=== PATIENT | male | born 1945 | race Caucasian/White ===

== ENCOUNTER 2017-06-08 15:15 | Emergency (ER) | payer OTHER, BC ==
[~2017-06-08] VITALS: Ht 172.7 cm; Wt 89.3 kg
[~2017-06-08 15:15] MED LIST: AKWA TEARS15 ML BOTH EYES; ALDACTONE25 MG PO; APRISO0.375 GM PO; ASPIR 8181 M1 PO; ATIVAN1 MG PO; CIALIS5 MG PO; CLOPIDOGREL75 MG PO; DIOVAN40 MG PO; DIOVAN80 MG PO; ESCITALOPRAM OX10 MG PO; FLONASE16 G1 BOTH NARES; FLUTICASONE PRO16 GM BOTH NARES; ISOSORBIDE DINI20 MG PO; KLONOPIN1 MG PO; LEXAPRO10 MG PO; LEXAPRO20 MG PO; LO-DOSE ASPIRIN81 M1 PO; LORAZEPAM1 MG PO; MECLIZINE HCL25 MG PO; METFORMIN HCL500 M1 PO; METOPROLOL SUCC25 MG PO; NITROSTAT0.4 MG SL; PLAVIX75 MG PO; PREVACID15 MG PO; PROAIR HFA8.5 GM IH; RANITIDINE HCL150 MG PO; REQUIP0.5 MG PO; SIMVASTATIN20 MG PO; SPIRONOLACTONE25 MG PO; SYMBICORT60 INHALAT IH; TOPROL XL25 MG PO; TYLENOL EXTRA500 MG PO; VIAGRA100 MG PO; WELLBUTRIN XL300 MG PO; ZANTAC300 MG PO; ZOCOR40 MG PO
[2017-06-08 15:53] LABS: HEMATOCRIT 45.3 % (38.0-50.0); MCH 32.3 PG (29.0-34.0); MCHC 34.2 G/DL (30.0-36.0); MCV 94.4 FL (86-99); MEAN PLAT.VOLUME 9.8 uM^3 (9.0-12.4); PLATELET COUNT 250 K/uL (156-360); RBC DIS.WIDTH-CV 11.5 % (11.8-14.6); RBC DIS.WIDTH-SD 39.9 % (39-53); WHITE BLOOD COUNT 8.5 K/uL (4.1-10.2)
[2017-06-08 16:02] LABS: CHLORIDE 108 mEq/L (99-109); POTASSIUM 3.9 mEq/L (3.7-5.4); SODIUM 141 mEq/L (136-147)
[2017-06-08 16:03] LABS: GLUCOSE 112 mg/dL (70-99)
[2017-06-08 16:05] LABS: ANION GAP 8 MEQ/L (2-14)
[2017-06-08 16:07] LABS: GFR ESTIMATE (CALCULATED) > 59 mL/min/
[2017-06-08 16:08] LABS: UREA NITROGEN (BUN) 10 mg/dL (9-23)
[2017-06-08 16:13] LABS: TROP-I INTERPRETATION NEGATIVE; TROPONIN-I < 0.01 ng/mL (0.0-0.30)
[2017-06-08 20:27] VITALS: BP 109/83
== END 2017-06-08 20:28 | disposition home or self-care (01) ==
LOC: EME 15:15
DX: M50.121 Cervical disc disorder at C4-C5 level with radiculopathy (principal); R07.89 Other chest pain; R11.0 Nausea; M48.03 Spinal stenosis, cervicothoracic region; I10 Essential (primary) hypertension; E78.5 Hyperlipidemia, unspecified; Z95.5 Presence of coronary angioplasty implant and graft; Z86.718 Personal history of other venous thrombosis and embolism; Z79.02 Long term (current) use of antithrombotics/antiplatelets; Z79.82 Long term (current) use of aspirin; Z87.891 Personal history of nicotine dependence
CPT/HCPCS: 71020; 71275; 80048; 84484; 85027; 93005; 99281; 99284

== ENCOUNTER 2017-06-11 08:46 | Emergency (ER) | payer OTHER, BC ==
[~2017-06-11] VITALS: Ht 172.7 cm; Wt 87.3 kg
[2017-06-11 09:46] LABS: EOSINOPHIL (%) 4.5 % (0-5); EOSINOPHIL COUNT 0.3 K/uL (0-0.3); HEMATOCRIT 41.2 % (38.0-50.0); IMMATURE GRANULOCYTE (%) 0.6 % (0.0-0.7); LYMPHOCYTE COUNT 1.6 K/uL (1.0-2.8); MCH 32.4 PG (29.0-34.0); MCHC 34.2 G/DL (30.0-36.0); MCV 94.7 FL (86-99); MEAN PLAT.VOLUME 9.6 uM^3 (9.0-12.4); MONOCYTE (%) 8.2 % (3-12); MONOCYTE COUNT 0.5 K/uL (0-0.8); NEUTROPHIL (%) 61.5 % (45-76); PLATELET COUNT 214 K/uL (156-360); RBC DIS.WIDTH-CV 11.5 % (11.8-14.6); RBC DIS.WIDTH-SD 39.9 % (39-53); RED BLOOD COUNT 4.35 M/uL (4.00-5.50); WHITE BLOOD COUNT 6.5 K/uL (4.1-10.2)
[2017-06-11 09:57] LABS: CHLORIDE 103 mEq/L (99-109); POTASSIUM 4.1 mEq/L (3.7-5.4); SODIUM 137 mEq/L (136-147)
[2017-06-11 09:59] LABS: GLUCOSE 127 mg/dL (70-99)
[2017-06-11 10:01] LABS: ANION GAP 10 MEQ/L (2-14); TOTAL BILIRUBIN 0.9 mg/dL (0.0-1.0)
[2017-06-11 10:03] LABS: ALKALINE PHOSPHATASE 70 IU/L (3-129); GFR ESTIMATE (CALCULATED) > 59 mL/min/
[2017-06-11 10:04] LABS: UREA NITROGEN (BUN) 10 mg/dL (9-23)
[2017-06-11 10:08] LABS: TROP-I INTERPRETATION NEGATIVE; TROPONIN-I < 0.01 ng/mL (0.0-0.30)
[2017-06-11] MEDS ORDERED: TESSALON200 MG PO (11:41)
[2017-06-11] MEDS ORDERED: NAPROXEN500 MG PO (11:41)
[2017-06-11] MEDS ORDERED: PREDNISONE20 MG PO (11:41)
[2017-06-11 11:58] VITALS: BP 109/78
== END 2017-06-11 11:59 | disposition home or self-care (01) ==
LOC: EME 08:46
PROVIDERS: Physician Assistant
DX: R09.1 Pleurisy (principal); J40 Bronchitis, not specified as acute or chronic; E11.9 Type 2 diabetes mellitus without complications; E78.5 Hyperlipidemia, unspecified; I10 Essential (primary) hypertension; I25.2 Old myocardial infarction; K21.9 Gastro-esophageal reflux disease without esophagitis; Z95.5 Presence of coronary angioplasty implant and graft; Z79.82 Long term (current) use of aspirin; Z87.891 Personal history of nicotine dependence
CPT/HCPCS: 71020; 80053; 83880; 84484; 85025; 85379; 93005; 99281; 99285; J1885; J2930

== ENCOUNTER 2017-10-07 10:46 | Emergency (ER) | payer OTHER, BC ==
[~2017-10-07] VITALS: Ht 172.7 cm; Wt 87.1 kg
[~2017-10-07 10:46] MED LIST changes: +NAPROXEN500 MG PO; +PREDNISONE20 MG PO; +TESSALON200 MG PO
[2017-10-07 11:27] LABS: BASOPHIL (%) 0.3 % (0-1); EOSINOPHIL (%) 3.5 % (0-5); EOSINOPHIL COUNT 0.4 K/uL (0-0.3); HEMATOCRIT 29.2 % (38.0-50.0); HEMOGLOBIN 9.7 G/DL (12.5-16.6); LYMPHOCYTE (%) 18.4 % (15-42); LYMPHOCYTE COUNT 1.9 K/uL (1.0-2.8); MCHC 33.2 G/DL (30.0-36.0); MCV 96.4 FL (86-99); MONOCYTE (%) 9.2 % (3-12); MONOCYTE COUNT 0.9 K/uL (0-0.8); NEUTROPHIL (%) 67.6 % (45-76); NEUTROPHIL COUNT 6.9 K/uL (1.8-6.4); PLATELET COUNT 322 K/uL (156-360); RBC DIS.WIDTH-CV 12.3 % (11.8-14.6); RBC DIS.WIDTH-SD 42.6 % (39-53); RED BLOOD COUNT 3.03 M/uL (4.00-5.50); WHITE BLOOD COUNT 10.2 K/uL (4.1-10.2)
[2017-10-07 11:35] LABS: ALBUMIN 3.7 g/dL (3.2-4.8); CHLORIDE 104 mEq/L (99-109); POTASSIUM 4.1 mEq/L (3.7-5.4); SODIUM 137 mEq/L (136-147)
[2017-10-07 11:37] LABS: GLUCOSE 111 mg/dL (70-99); TOTAL PROTEIN 6.1 g/dL (6.4-8.3)
[2017-10-07 11:38] LABS: APPEARANCE CLEAR ((CLEAR)); BILIRUBIN NEGATIVE; BLOOD NEGATIVE; COLOR COLORLESS ((YELLOW)); GLUCOSE (STRIP) NEGATIVE; KETONES NEGATIVE; LEUKOCYTES NEGATIVE; NITRITE NEGATIVE; PROTEIN (STRIP) NEGATIVE; SPECIFIC GRAVITY 1.003 (1.000-1.030); UCUL ADDED? NO; UROBILINOGEN 0.2 MG/DL (0.2-1.0)
[2017-10-07 11:39] LABS: TOTAL BILIRUBIN 0.4 mg/dL (0.0-1.0)
[2017-10-07 11:41] LABS: ALKALINE PHOSPHATASE 71 IU/L (3-129); CREATININE 0.8 mg/dL (0.6-1.3); GFR ESTIMATE (CALCULATED) > 59 mL/min/ (58.99-99999)
[2017-10-07 11:42] LABS: UREA NITROGEN (BUN) 12 mg/dL (9-23)
[2017-10-07 11:43] LABS: AST (GOT) 19 IU/L (2-34)
[2017-10-07 11:44] LABS: ALT (GPT) 20 IU/L (3-49)
[2017-10-07 14:32] VITALS: BP 110/73
== END 2017-10-07 14:51 | disposition home or self-care (01) ==
LOC: EME 10:46
PROVIDERS: Emergency Medicine
DX: R41.0 Disorientation, unspecified (principal); T48.1X5A Adverse effect of skeletal muscle relaxants [neuromuscular blocking agents], initial encounter; Z98.890 Other specified postprocedural states; Z98.1 Arthrodesis status; R51 Headache; I10 Essential (primary) hypertension; E78.5 Hyperlipidemia, unspecified; I25.2 Old myocardial infarction; Z95.5 Presence of coronary angioplasty implant and graft; Z79.02 Long term (current) use of antithrombotics/antiplatelets; Z79.82 Long term (current) use of aspirin; Z87.891 Personal history of nicotine dependence
CPT/HCPCS: 70450; 80053; 81003; 85025; 99281; 99284